=== PATIENT | female | born 1940 | race Caucasian/White ===

== ENCOUNTER 2016-05-16 06:28 | Inpatient (IN) | payer MEDICARE, BC ==
[2016-05-10 09:33] VITALS: BMI 24.5
[2016-05-10 09:56] VITALS: BP_SYST 104; RESP 20; TEMP 98.6
[2016-05-16] VITALS (21 sets, daily range): BP systolic 94–136; RESP 8–24; TEMP 97–98.2; Ht 160 cm; Wt 62.6 kg
[~2016-05-16] VITALS: Ht 160 cm; Wt 62.6 kg
[~2016-05-16 06:28] MED LIST: CEFAZOLIN 2,000 MG in SODIUM CHLORIDE 0.9% 100 ML IV ONE; GLYCOPYRROLATE 0.2 MG/ML VIAL IV ONE; LIDOCAINE 1% BUFFERED 1 ML SYR INTRADERM PRN; MIDAZOLAM 2 MG/2 ML INJ IV ONE; ONDANSETRON 4 MG VIAL IV ONE
[2016-05-16] MEDS: LACT RINGERS 1,000 ML IV SCH ×2 (06:43→14:29)
[2016-05-16] MEDS ORDERED: BUPIVACA/EPI 0.5% PF 10 ML NERVEBLOCK ONE (07:41)
[2016-05-16] MEDS ORDERED: LIDOCAINE 1% 20ML NERVEBLOCK ONE (07:41)
[2016-05-16] MEDS ORDERED: FENTANYL 100 MCG/2 ML AMP IV ONE (07:50)
[2016-05-16] MEDS ORDERED: ONDANSETRON 4 MG VIAL IV PUSH ONE (07:50)
[2016-05-16] MEDS ORDERED: ROCURONIUM 50 MG VIAL IV ONE (07:50)
[2016-05-16] MEDS ORDERED: PROPOFOL 20 ML PER ML IV ONE (07:50)
[2016-05-16] MEDS ORDERED: NEOSTIGMINE 10 MG/10 ML VIAL IV ONE (07:50)
[2016-05-16] MEDS ORDERED: GLYCOPYRROLATE 0.2 MG/ML VIAL IV ONE (07:50)
[2016-05-16] MEDS ORDERED: ONDANSETRON 4 MG VIAL IV PRN (12:30)
[2016-05-16] MEDS ORDERED: OXYCODONE 5 MG TAB PO PRN (12:30)
[2016-05-16] MEDS ORDERED: MEPERIDINE 25 MG/ML IV PRN (12:30)
[2016-05-16] MEDS ORDERED: ACETAMINOPHEN 325 MG TAB PO PRN (12:55)
[2016-05-16] MEDS ORDERED: [UNRECOGNIZED DRUG - OTHER] I-ARTERIAL SCH (12:55)
[2016-05-16] MEDS ORDERED: SALINE FLUSH 10 ML FLUSH PRN (12:55)
[2016-05-16] MEDS ORDERED: HEPARIN I-ARTERIAL SCH (12:55)
[2016-05-16] MEDS ORDERED: LACT RINGERS 1,000 ML IV SCH (12:55)
[2016-05-16] MEDS: CEFAZOLIN 3,000 MG in SODIUM CHLORIDE 0.9% 100 ML IV SCH ×2 (14:29→23:41)
[2016-05-16] MEDS: DILAUDID 1 MG/ML AMP IV PRN ×2 (14:29→14:50)
[2016-05-16] MEDS ORDERED: LABETALOL 100 MG/20 ML VIAL ONE (14:53)
[2016-05-16] MEDS ORDERED: LABETALOL 100 MG/20 ML VIAL IV PUSH ONE (14:55)
[2016-05-16] MEDS ORDERED: BISACODYL 10 MG SUPP RECTAL ONE (15:50)
[2016-05-16] MEDS ORDERED: ACETAMINOPHEN 650 MG SUPP RECTAL PRN (15:50)
[2016-05-16] MEDS ORDERED: DILAUDID 1 MG/ML AMP IV PRN (17:05)
[2016-05-16] MEDS ORDERED: DILAUDID 1 MG/ML AMP IV ONE (17:05)
[2016-05-16] MEDS ORDERED: DILAUDID 0.2 MG/ML PCA IV SCH (17:30)
[2016-05-16] MEDS: SALINE FLUSH 10 ML FLUSH SCH (20:00)
[2016-05-17] VITALS (28 sets, daily range): BP systolic 98–123; RESP 13–32; TEMP 97.4–101
[2016-05-17] MEDS: SODIUM CHLORIDE 0.9% FLUSH BAG 500 ML IV SCH (06:00)
[2016-05-17] MEDS: ONDANSETRON 4 MG VIAL IV PRN (07:33)
[2016-05-17] MEDS: SALINE FLUSH 10 ML FLUSH SCH ×2 (08:09→20:00)
[2016-05-17] MEDS: ACETAMINOPHEN 1,000 MG/100 ML IV SCH ×2 (10:27→17:19)
[2016-05-17] MEDS: D5-1/2-NS W/KCL 20MEQ/L 1,000 ML IV SCH ×2 (10:44→20:44)
[2016-05-17] MEDS: PROMETHAZINE 25 MG/ML VIAL IV PRN (12:23)
[2016-05-17] MEDS ORDERED: ASPIRIN 81 MG CHEW TAB PO SCH (12:42)
[2016-05-18] VITALS (19 sets, daily range): BP systolic 111–132; RESP 18–26; TEMP 97.5–99.3
[2016-05-18] MEDS: ACETAMINOPHEN 1,000 MG/100 ML IV SCH ×2 (00:40→08:40)
[2016-05-18] MEDS: ALPRAZOLAM 0.25 MG TAB PO PRN ×2 (04:32→20:30)
[2016-05-18] MEDS: SODIUM CHLORIDE 0.9% FLUSH BAG 500 ML IV SCH (06:00)
[2016-05-18] MEDS: D5-1/2-NS W/KCL 20MEQ/L 1,000 ML IV SCH (06:38)
[2016-05-18] MEDS ORDERED: OPTIRAY 350 100 ML VIAL HMH IV ONE (06:56)
[2016-05-18] MEDS: PRIMIDONE 50 MG TAB PO SCH ×4 (08:10→20:30)
[2016-05-18] MEDS: SALINE FLUSH 10 ML FLUSH SCH ×2 (08:14→20:30)
[2016-05-18] MEDS: PROMETHAZINE 25 MG/ML VIAL IV PRN (11:09)
[2016-05-18] MEDS: ONDANSETRON 4 MG VIAL IV PRN ×2 (19:03→22:58)
[2016-05-19 03:33] VITALS: BP_SYST 124; RESP 18; TEMP 97.9
[2016-05-19] MEDS: SODIUM CHLORIDE 0.9% FLUSH BAG 500 ML IV SCH (05:36)
[2016-05-19] MEDS: ONDANSETRON 4 MG VIAL IV PRN (06:25)
[2016-05-19 07:04] VITALS: BP_SYST 121; RESP 14; TEMP 98.6
[2016-05-19] MEDS ORDERED: MAG HYDROX 30 ML UDC PO PRN (08:15)
[2016-05-19] MEDS ORDERED: OXYCODONE 5 MG TAB PO PRN (08:15)
[2016-05-19] MEDS ORDERED: POLYETHYLENE GLYCOL 17 GM PACKET PO PRN (08:15)
[2016-05-19] MEDS ORDERED: DOCUSATE SOD 100 MG CAP PO SCH (09:00)
[2016-05-19] MEDS ORDERED: ASPIRIN 81 MG CHEW TAB PO SCH (09:00)
[2016-05-19] MEDS: ACETAMINOPHEN 325 MG TAB PO SCH ×2 (09:03→13:31)
[2016-05-19] MEDS: SALINE FLUSH 10 ML FLUSH SCH (09:03)
[2016-05-19] MEDS: PRIMIDONE 50 MG TAB PO SCH ×3 (09:04→16:23)
[2016-05-19] MEDS: ALPRAZOLAM 0.25 MG TAB PO PRN (09:05)
[2016-05-19 10:48] VITALS: BP_SYST 124; RESP 16; TEMP 97.4
[2016-05-19 14:36] VITALS: BP_SYST 116; RESP 14; TEMP 97.8
[2016-05-19 17:36] VITALS: BP_SYST 116; RESP 14; TEMP 97.8
== END 2016-05-19 18:55 | disposition home or self-care (01) | DRG 269 ==
LOC: ENRESERVTM → ENRESERVDT → SDS 06:28 → ENPENDDIS 06:28 → ICU 13:08 → 5THE 05-18 17:02
PROVIDERS: ADMIT Surgery Vascular Surgery; ATTEND Surgery Vascular Surgery
PROC: 04V03EZ Restriction of Abdominal Aorta with Branched or Fenestrated Intraluminal Device, One or Two Arteries, Percutaneous Approach (ICD-10-PCS; principal; 2016-05-17)
DX: I71.4 Abdominal aortic aneurysm, without rupture (principal); J44.9 Chronic obstructive pulmonary disease, unspecified; E78.5 Hyperlipidemia, unspecified; Z85.3 Personal history of malignant neoplasm of breast
CPT/HCPCS: 36415; 74174; 74176; 75952; 76001; 80048; 85025; 96365